=== PATIENT | female | born 1940 | race Caucasian/White ===

== ENCOUNTER 2018-03-18 18:12 | Outpatient (CLI) | payer MEDICARE, BC ==
--- NOTE | 2018-03-18 19:00 | CT Report ---
EXAM: CT HEAD EXAM DATE: 03/18/2018 06:36 PM. CLINICAL HISTORY: HEADACHE ON CHRONIC ANTICOAGULATION. COMPARISON: None. TECHNIQUE: Multiaxial CT images were obtained from the foramen magnum to the vertex. Reformats: Coron al. IV contrast: None. In accordance with CT protocol optimization, one or more of the following dose reduction techniques w ere utilized for this exam: automated exposure control, adjustment of mA and/or KV based on patient s ize, or use of iterative reconstructive technique. FINDINGS: Parenchyma: No intraparenchymal hemorrhage. No evidence of mass, midline shift, or CT findings of inf arction. Estrella-white differentiation is distinct. Extraaxial Spaces: Normal for age. No subdural or epidural collections identified. Ventricles: Normal in size and position. Sinuses and Orbits: There is opacification of the right sphenoid sinus. Other paranasal sinuses appea r clear. Bones: No evidence of fracture or calvarial defect. Other: None. IMPRESSION: 1. Negative for an acute or focal intracranial abnormality. 2. Right sphenoid sinus inflammatory disease. [facility] Referring Provider Line: [phone] SITE ID: [id number]
== END 2018-03-18 18:13 | disposition home or self-care (01) ==
LOC: DI 18:12
PROVIDERS: ATTEND Physician Assistant
DX: R51 Headache (principal); Z79.01 Long term (current) use of anticoagulants; J32.3 Chronic sphenoidal sinusitis
CPT/HCPCS: 70450

== ENCOUNTER 2018-05-15 10:41 | Emergency (ER) | payer MEDICARE, BC ==
[2018-05-15 11:11] LABS: BASOPHILS % (AUTO) 1.2 %; EOSINOPHILS # (AUTO) 0.1 10^3/uL (0.0-0.7); EOSINOPHILS % (AUTO) 4.2 %; LYMPHOCYTES # (AUTO) 1.2 10^3/uL (1.5-3.5); LYMPHOCYTES % (AUTO) 36.9 %; MEAN CORPUSCULAR HEMOGLOBIN 31.6 pg (27.0-31.0); MEAN CORPUSCULAR HGB CONC 33.4 g/dL (32.0-36.0); MEAN CORPUSCULAR VOLUME 94.5 fL (81.0-99.0); MEAN PLATELET VOLUME 7.4 fL (7.9-10.8); MONOCYTES # (AUTO) 0.3 10^3/uL (0.0-1.0); NEUTROPHILS # (AUTO) 1.6 10^3/uL (1.5-6.6); NEUTROPHILS % (AUTO) 47.7 %; PLT - PLATELET COUNT 187 10^3/uL (130-450); RED BLOOD COUNT 4.44 10^6/uL (4.20-5.40); RED CELL DISTRIBUTION WIDTH 14.4 % (12.0-15.0); WHITE BLOOD COUNT 3.4 x10^3/uL (4.8-10.8)
--- NOTE | 2018-05-15 11:18 | XRAY Report ---
Procedure Date: 05/15/2018 Accession Number: [id number] / [id number] Procedure: XR - Chest 2 View X-Ray CPT Code: 38474 FULL RESULT: EXAM: CHEST RADIOGRAPHY EXAM DATE: 05/15/2018 11:09 AM. CLINICAL HISTORY: Shortness of breath, chest pain. COMPARISON: 10/14/2008. TECHNIQUE: 2 views. FINDINGS: Lungs/Pleura: No focal opacities evident. No pleural effusion. No pneumothorax. Normal volumes. Mediastinum: Heart and mediastinal contours are unremarkable. Other: There are mild degenerative disk changes of the midthoracic spine. No acute osseous abnormality. There are postsurgical changes of the right shoulder. IMPRESSION: No acute cardiopulmonary abnormality. [facility]
--- NOTE | 2018-05-15 11:28 | ED Physician Documentation ---
PD HPI CHEST PAIN - Stated complaint Stated Complaint: CHEST PX - Chief complaint Chief Complaint: Cardiac - History obtained from History obtained from: Patient - History of Present Illness Timing - onset: Today Timing - onset during: Rest Timing - details: Now resolved Pain level max: 2 Pain level now: 0 Quality: Dull Location: Substernal Similar symptoms before: Work up / diagnostics (Past history of GA, with stent placement 2017.) - Additional information Additional information: The patient is a 77-year-old female with history of coronary artery disease, who awoke this morning with chest pain, located in the left substernal region. It was a dull pain that she rated at 2 out of 10 in severity. It lasted for about 2 hours before resolving spontaneously. She denies any chest discomfort at this time. She reports exertional dyspnea 2 days ago, but did the same walk yesterday without any exertional dyspnea. She reports "indigestion" intermittently the past couple of days. She denies nausea or vomiting currently. She denies diaphoresis. Past medical history significant for myocardial infarction in December 2017, for which she underwent stent placement of an LAD blockage. She is currently on Eliquis and Plavix. Review of Systems Constitutional: reports: Fatigue (slight). denies: Fever Ears: denies: Tinnitus/ringing Nose: denies: Congestion Throat: denies: Sore throat Cardiac: reports: Chest pain / pressure (Earlier, but not now.) Respiratory: denies: Dyspnea, Cough GI: denies: Abdominal Pain, Nausea, Vomiting : denies: Dysuria Skin: denies: Rash Musculoskeletal: denies: Back pain, Extremity pain Neurologic: denies: Focal weakness, Numbness, Headache PD PAST MEDICAL HISTORY - Past Medical History Cardiovascular: High cholesterol, GA Endocrine/Autoimmune: None - Present Medications Home Medications: Ambulatory Orders Medication Instructions Recorded Confirmed Nitroglycerin [Nitrostat] 0.4 mg SL Q5MIN PRN #25 tablet 05/15/18 - Allergies Allergies/Adverse Reactions: Allergies Allergy/AdvReac Type Severity Reaction Status Date / Time prochlorperazine Allergy Unknown Verified 05/15/18 10:48 [From Compazine] - Social History Does the pt smoke?: No PD ED PE NORMAL - Vitals Vital signs reviewed: Yes (Borderline systolic hypertension) - General General: Alert and oriented X 3, Well developed/nourished - HEENT HEENT: Atraumatic, Moist mucous membranes, Pharynx benign - Neck Neck: No adenopathy, No JVD - Cardiac Cardiac: RRR, No murmur - Respiratory Respiratory: No respiratory distress, Clear bilaterally - Abdomen Abdomen: Soft, Non tender - Back Back: No CVA TTP - Derm Derm: No rash - Extremities Extremities: No edema, No calf tenderness / cord - Neuro Neuro: Alert and oriented X 3, No motor deficit, Normal speech Results - Vitals Vitals: Oxygen O2 Source Room air - EKG (time done) 10:59 Rate: Rate (enter#) (59) Rhythm: NSR Pride: Normal Intervals: Normal IN QRS: Low voltage Computer interpretation: Agree with computer - Labs Labs: Laboratory Tests 05/15/18 05/15/18 05/15/18 11:05 11:05 11:05 WBC 3.4 L RBC 4.44 Hgb 14.0 Hct 42.0 MCV 94.5 MCH 31.6 H MCHC 33.4 RDW 14.4 Plt Count 187 MPV 7.4 L Neut # (Auto) 1.6 Lymph # (Auto) 1.2 L Laurel # (Auto) 0.3 Eos # (Auto) 0.1 Baso # (Auto) 0.0 Absolute Nucleated RBC 0.00 Nucleated RBC % 0.0 Sodium 137 Potassium 3.7 Chloride 102 Carbon Dioxide 27 Anion Gap 8.0 BUN 14 Creatinine 0.8 Estimated GFR (MDRD) 70 L Glucose 127 H Calcium 9.3 Total Bilirubin 0.9 AST 51 H ALT 55 Alkaline Phosphatase 80 Troponin I < 0.04 Total Protein 6.7 Albumin 4.0 Globulin 2.7 Albumin/Globulin Ratio 1.5 Lipase 39 - Rads (name of study) CXR Radiology: Prelim report reviewed, EMP read contemporaneously, See rad report ( No acute cardiopulmonary abnormality.) PD MEDICAL DECISION MAKING - ED course Complexity details: reviewed results, re-evaluated patient, considered differential, d/w patient, d/w family, 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 She has history of coronary artery disease and her symptoms may be a result of angina. However she also has history of gastroesophageal reflux disease, and her symptoms may well be due to GERD. Her electrocardiogram and cardiac enzymes reveal no evidence of acute ischemic abnormality. The patient remained asymptomatic during her entire time in the emergency department. I discussed her condition with her sticker on, who agrees with prescription for sublingual nitroglycerin, and outpatient follow-up in the cardiology clinic. She is being discharged with prescription for sublingual nitroglycerin. I discussed with her and her symptomatic treatment, outpatient follow-up, as well as potentially worrisome signs or symptoms that should prompt reevaluation in the emergency department. - Sepsis Event Vital Signs: Oxygen O2 Source Room air Departure - Departure Disposition: 01 Home, Self Care Clinical Impression: Chest pain Qualifiers: Chest pain type: unspecified Qualified Code(s): R07.9 - Chest pain, unspecified Condition: Stable Instructions: Nitroglycerin Fast Act Dc, ED Chest Pain Atypical Unkn Cause Prescriptions: Nitroglycerin [Nitrostat] 0.4 mg SL Q5MIN PRN #25 tablet PRN Reason: Angina Comments: Continue the medication that has been previously prescribed for you. You can use sublingual nitroglycerin if needed for recurrent chest discomfort or exertional shortness of breath. Follow up with your sticker on next week as planned. Return to the emergency department if you develop increasing chest pain, shortness of breath, or otherwise worsening symptoms. Discharge Date/Time: 05/15/18 13:50
[2018-05-15 11:34] LABS: ALBUMIN/GLOBULIN RATIO 1.5 (1.0-2.2); BILIRUBIN,TOTAL 0.9 mg/dL (0.2-1.0); CALCIUM 9.3 mg/dL (8.5-10.3); CREATININE 0.8 mg/dL (0.4-1.0); TOTAL PROTEIN 6.7 g/dL (6.7-8.2)
[2018-05-15 13:19] VITALS: BP 132/81
== END 2018-05-15 13:50 | disposition home or self-care (01) ==
LOC: ED 10:41
DX: R07.9 Chest pain, unspecified (principal); I25.10 Atherosclerotic heart disease of native coronary artery without angina pectoris
CPT/HCPCS: 36415; 71046; 80053; 83690; 84484; 85025; 93005; 99283; 99284

== ENCOUNTER 2018-12-07 06:34 | Outpatient (CLI) | payer MEDICARE, BC | END 2018-12-07 06:35 | disposition short-term general hospital (02) | LOC: EMS 06:34 | PROVIDERS: ATTEND Surgery | DX: R07.9 Chest pain, unspecified (principal) | CPT/HCPCS: A0425; A0429 ==

== ENCOUNTER 2021-01-29 14:26 | Outpatient (CLI) | payer MEDICARE, BC | END 2021-01-29 14:27 | disposition short-term general hospital (02) | LOC: EMS 14:26 | DX: R07.9 Chest pain, unspecified (principal) | CPT/HCPCS: A0425; A0429 ==

== ENCOUNTER 2021-03-25 15:25 | Outpatient (CLI) | payer MEDICARE, BC | END 2021-03-25 15:26 | disposition home or self-care (01) | LOC: LAB 15:25 | PROVIDERS: ATTEND Internal Medicine | DX: Z20.822 Contact with and (suspected) exposure to COVID-19 (principal) ==

== ENCOUNTER 2021-05-09 08:00 | Outpatient (CLI) | payer MEDICARE, BC ==
[2021-05-09 14:50] LABS: BILIRUBIN,URINE NEGATIVE (NEGATIVE); GLUCOSE, URINE (UA) NEGATIVE (NEGATIVE); KETONES,URINE (UA) NEGATIVE (NEGATIVE); LEUKOCYTE ESTERASE, URINE NEGATIVE (NEGATIVE); NITRITE,URINE NEGATIVE (NEGATIVE); OCCULT BLOOD,URINE NEGATIVE (NEGATIVE); PROTEIN,URINE NEGATIVE (NEGATIVE); UROBILINOGEN,URINE 0.2 (NORMAL) E.U./dL (NORMAL)
[2021-05-09 14:54] LABS: CLARITY,URINE CLEAR (CLEAR)
== END 2021-05-09 23:59 | disposition home or self-care (01) ==
LOC: LAB.R 08:00
PROVIDERS: ATTEND Internal Medicine
DX: I10 Essential (primary) hypertension (principal)
CPT/HCPCS: 81001; 81003

== ENCOUNTER 2021-06-29 08:00 | Outpatient (CLI) | payer MEDICARE, BC | END 2021-06-29 23:59 | disposition home or self-care (01) | LOC: LAB.S 08:00 | PROVIDERS: ATTEND Physician Assistant Medical | DX: B34.9 Viral infection, unspecified (principal); Z20.822 Contact with and (suspected) exposure to COVID-19 ==

== ENCOUNTER 2024-04-07 10:05 | Outpatient (CLI) | payer MEDICARE, OTHER ==
--- NOTE | 2024-04-08 11:49 | Mammography Report ---
BILATERAL DIGITAL SCREENING MAMMOGRAM 3D/2D: 04/07/2024 CLINICAL: Routine screening. Comparison is made to exams dated: 02/26/2023 mammogram, 11/06/2021 mammogram, and 11/06/2020 mammogr am - [facility]. There are scattered areas of fibroglandular density in both breasts (category b / 25%-50% glandular t issue). There is a focal asymmetry in the right breast at 9 o'clock middle depth. There also is a focal asymmetry in the right breast at 12 o'clock posterior depth. No other significant masses, calcifications, or other findings are seen in either breast. IMPRESSION: INCOMPLETE: NEEDS ADDITIONAL IMAGING EVALUATION The focal asymmetry in the right breast at 9 o'clock middle depth is indeterminate. Additional views with possible ultrasound are recommended. The focal asymmetry in the right breast at 12 o'clock posterior depth is indeterminate. Additional v iews with possible ultrasound are recommended. Based on the Tyrer Cuzick model (a risk assessment model) the patient's lifetime risk is 0.6% and her 10 year risk is 0.0%. According to the ACR, ACS, and NCCN guidelines, an annual breast MRI exam denis g with mammogram is recommended if the patient's lifetime risk is 20% or greater. This exam was interpreted at Station ID: [id number]. NOTE: For mammograms, a report in lay terms will be sent to the patient. Approximately 15% of breast malignancies will not be visualized mammographically. In the management of a palpable breast mass, a negative mammogram must not discourage biopsy of a clinically suspicious lesion. Electronically Signed By: Jennifer Gamboa M.D. lk/:04/07/2024 15:49:41 ACR BI-RADS Category 0: Incomplete 3340F PARENCHYMAL PATTERN: (A) - The breast(s) demonstrate(s) scattered fibroglandular densities. BI-RADS CATEGORY: (0) - 0 Mammo and [place] [id number] Immediate follow-up LATERALITY: (B)
== END 2024-04-07 10:06 | disposition home or self-care (01) ==
LOC: DI.S 10:05
DX: Z12.31 Encounter for screening mammogram for malignant neoplasm of breast (principal); R92.8 Other abnormal and inconclusive findings on diagnostic imaging of breast; R92.323 Mammographic fibroglandular density, bilateral breasts

== ENCOUNTER 2024-04-28 09:07 | Outpatient (CLI) | payer MEDICARE, OTHER ==
[2024-04-28 15:05] LABS: BASOPHILS % (AUTO) 0.5 %; EOSINOPHILS # (AUTO) 0.2 10^3/uL (0.0-0.7); EOSINOPHILS % (AUTO) 4.3 %; HCT - HEMATOCRIT 42.6 % (37.0-47.0); HGB - HEMOGLOBIN 13.6 g/dL (12.0-16.0); LYMPHOCYTES # (AUTO) 1.3 10^3/uL (1.5-3.5); LYMPHOCYTES % (AUTO) 34.4 %; MEAN CORPUSCULAR HEMOGLOBIN 30.7 pg (27.0-31.0); MEAN CORPUSCULAR HGB CONC 31.9 g/dL (32.0-36.0); MEAN CORPUSCULAR VOLUME 96.2 fL (81.0-99.0); MEAN PLATELET VOLUME 9.9 fL (7.9-10.8); MONOCYTES # (AUTO) 0.5 10^3/uL (0.0-1.0); NEUTROPHILS # (AUTO) 1.8 10^3/uL (1.5-6.6); NEUTROPHILS % (AUTO) 48.5 %; PLT - PLATELET COUNT 213 10^3/uL (130-450); RED BLOOD COUNT 4.43 10^6/uL (4.20-5.40); RED CELL DISTRIBUTION WIDTH 14.4 % (12.0-15.0); WHITE BLOOD COUNT 3.8 x10^3/uL (4.8-10.8)
== END 2024-04-28 09:08 | disposition home or self-care (01) ==
LOC: LAB.S 09:07
PROVIDERS: ATTEND Internal Medicine
DX: E78.5 Hyperlipidemia, unspecified (principal); I10 Essential (primary) hypertension; R79.89 Other specified abnormal findings of blood chemistry
CPT/HCPCS: 36415; 80053; 80061; 83721; 85025

== ENCOUNTER 2024-04-30 09:46 | Outpatient (CLI) | payer MEDICARE, OTHER ==
[2024-04-30 15:59] LABS: ALBUMIN 4.4 g/dL (3.2-5.5); ALBUMIN/GLOBULIN RATIO 2.1 (1.0-2.2); ALKALINE PHOSPHATASE 51 IU/L (42-121); ALT ALANINE AMINOTRANSFERASE 30 IU/L (10-60); AST ASPARTATE AMINOTRANSFERASE 29 IU/L (10-42); BILIRUBIN,TOTAL 0.7 mg/dL (0.2-1.0); BUN - BLOOD UREA NITROGEN 26 mg/dL (6-20); CALCIUM 9.7 mg/dL (8.5-10.3); CARBON DIOXIDE - CO2 27 mmol/L (21-32); CHLORIDE 106 mmol/L (101-111); CHOLESTEROL 145 mg/dL; CREATININE 0.7 mg/dL (0.6-1.3); GFR - MDRD 80 (>89); GLUCOSE 92 mg/dL (74-104); HDL CHOLESTEROL 74 mg/dL; LDL CHOLESTEROL,CALCULATED 57 mg/dL; LDL/HDL RATIO 0.8 (<4.4); POTASSIUM 4.4 mmol/L (3.5-4.5); SODIUM 138 mmol/L (135-145); TOTAL PROTEIN 6.5 g/dL (6.4-8.9); TRIGLYCERIDES 69 mg/dL (48-352); VLDL CHOLESTEROL 14 mg/dL
== END 2024-04-30 09:47 | disposition home or self-care (01) ==
LOC: LAB.S 09:46
PROVIDERS: ATTEND Internal Medicine
DX: I10 Essential (primary) hypertension (principal); E78.5 Hyperlipidemia, unspecified; R79.89 Other specified abnormal findings of blood chemistry
CPT/HCPCS: 36415; 80053; 80061; 83721

== ENCOUNTER 2024-05-07 09:45 | Outpatient (CLI) | payer MEDICARE, OTHER ==
--- NOTE | 2024-05-10 10:57 | Ultrasound Report ---
LIMITED ULTRASOUND OF RIGHT BREAST AND AXILLA: 05/07/2024 CLINICAL: Patient returns today to evaluate a focal asymmetry in the right breast. Comparison is made to exams dated: 04/07/2024 mammogram - [facility] and 02/26/2023 mammogram - [facility]. Color flow ultrasound of the right breast 7-9 o'clock, 12 o'clock, and axilla regions was performed. Estrella scale images of the real-time examination were reviewed. There is a 0.4 cm x 0.3 cm x 0.4 cm oval mass with mildy angular margins in the right breast at 9 o'c lock middle depth 6 cm from the nipple. This oval mass is hypoechoic with no posterior acoustic shad owing or enhancement. This correlates with mammography findings. Color flow imaging demonstrates th at there is no vascularity present. There also is a 0.7 cm x 0.4 cm x 0.5 cm wider than tall normal lymph node in the right breast at 12 o'clock posterior depth 7 cm from the nipple. This normal lymph node is hypoechoic with fatty hilum. This correlates with mammography findings. Color flow imaging demonstrates that there is no vascul arity present. Additionally, there is a 0.5 cm x 0.3 cm x 0.4 cm wider than tall oval cyst in the right breast at 8 o'clock middle depth 6 cm from the nipple. This oval cyst is anechoic with a well-defined boundary a nd posterior acoustic enhancement. This correlates as an incidental finding. Color flow imaging dem onstrates that there is no vascularity present. No significant abnormalities were seen sonographically in the right axilla. IMPRESSION: SUSPICIOUS OF MALIGNANCY The 0.4 cm x 0.3 cm x 0.4 cm oval mass in the right breast at 9 o'clock middle depth is suspicious of malignancy. An ultrasound guided biopsy is recommended. The 0.7 cm x 0.4 cm x 0.5 cm wider than tall normal lymph node in the right breast at 12 o'clock post erior depth is benign. The 0.5 cm x 0.3 cm x 0.4 cm wider than tall oval cyst in the right breast at 8 o'clock middle depth is consistent with a simple cyst and is benign. Findings and recommendations were discussed with the patient by Dr. Garcia during today's examination. This exam was interpreted at Station ID: [id number]. Electronically Signed By: Mansoor Davis M.D. aty/:05/07/2024 13:14:11 Ultrasound BI-RADS: 4 Suspicious for malignancy BI-RADS CATEGORY: (4) - 4 Biopsy [id number] Immediate follow-up LATERALITY: (R)
--- NOTE | 2024-05-10 10:57 | Mammography Report ---
UNILATERAL RIGHT DIGITAL DIAGNOSTIC MAMMOGRAM 3D/2D WITH LATEROMEDIAL SPOT COMPRESSION: 05/07/2024 CLINICAL: Patient returns today to evaluate focal asymmetries in the right breast. Comparison is made to exams dated: 04/07/2024 mammogram - [facility], 02/26/2023 jennifer mogram, 11/06/2021 mammogram, 11/06/2020 mammogram, 11/02/2019 mammogram, and 10/05/2019 mammogram - [facility]. There are scattered areas of fibroglandular density in the right breast (category b / 25%-50% glandul ar tissue). There is a 0.6 cm oval focal asymmetry in the right breast at 8 o'clock middle depth. This is seen i n additional views. There also is a 0.5 cm oval equal density focal asymmetry in the right breast at 12 o'clock posterior depth. No other significant masses or calcifications are seen in the breast. IMPRESSION: INCOMPLETE: NEEDS ADDITIONAL IMAGING EVALUATION The 0.6 cm oval focal asymmetry in the right breast at 8 o'clock middle depth resembles a cyst or a l ymph node and is indeterminate. An ultrasound is recommended for further evaluation and is scheduled to immediately follow this examination. The 0.5 cm oval equal density focal asymmetry in the right breast at 12 o'clock posterior depth resem bles a cyst or a lymph node and is indeterminate. An ultrasound is recommended for further evaluatio n and is scheduled to immediately follow this examination. Based on the Tyrer Cuzick model (a risk assessment model) the patient's lifetime risk is 0.6% and her 10 year risk is 0.0%. According to the ACR, ACS, and NCCN guidelines, an annual breast MRI exam denis g with mammogram is recommended if the patient's lifetime risk is 20% or greater. This exam was interpreted at Station ID: [id number]. NOTE: For mammograms, a report in lay terms will be sent to the patient. Approximately 15% of breast malignancies will not be visualized mammographically. In the management of a palpable breast mass, a negative mammogram must not discourage biopsy of a clinically suspicious lesion. Electronically Signed By: Mansoor Davis M.D. aty/:05/07/2024 10:31:07 ACR BI-RADS Category 0: Incomplete 3340F PARENCHYMAL PATTERN: (A) - The breast(s) demonstrate(s) scattered fibroglandular densities. BI-RADS CATEGORY: (0) - 0 Ultrasound [id number] Immediate follow-up LATERALITY: (R)
== END 2024-05-07 09:46 | disposition home or self-care (01) ==
LOC: DI 09:45
PROVIDERS: ATTEND Internal Medicine
DX: N63.15 Unspecified lump in the right breast, overlapping quadrants (principal); N60.01 Solitary cyst of right breast; R92.321 Mammographic fibroglandular density, right breast

== ENCOUNTER 2024-05-18 09:44 | Outpatient (CLI) | payer MEDICARE, OTHER ==
[~2024-05-18 09:44] MED LIST: LIDOCAINE 1%-EPI 1:100000 20 ML MDV ONE; LIDOCAINE-MPF 1% 5 ML VIAL ONE
[2024-05-18] MEDS: LIDOCAINE-MPF 1% 5 ML VIAL TD ONE (13:24)
[2024-05-18] MEDS: LIDOCAINE 1%-EPI 1:100000 20 ML MDV SUBQ ONE (13:25)
--- NOTE | 2024-05-20 10:42 | Mammography Report ---
UNILATERAL RIGHT DIGITAL DIAGNOSTIC MAMMOGRAM - RIGHT BREAST POST-PROCEDURE IMAGING FOR MARKER PLACEM ENT: 05/18/2024 CLINICAL: Routine screening. Comparison is made to exams dated: 05/07/2024 ultrasound, 05/07/2024 mammogram, 04/07/2024 mammogram - [facility], 02/26/2023 mammogram, 11/06/2021 mammogram, and 11/06/2020 mammogram - [facility]. There are scattered areas of fibroglandular density in the right breast (category b / 25%-50% glandul ar tissue). There is a marker clip in the appropriate position in the right breast at 9 o'clock middle depth 6 cm from the nipple. This marker clip placement is at the biopsy site. IMPRESSION: POST PROCEDURE MAMMOGRAM FOR MARKER PLACEMENT There was a successful marker clip placement in the right breast middle depth. Based on the Tyrer Cuzick model (a risk assessment model) the patient's lifetime risk is 0.6% and her 10 year risk is 0.0%. According to the ACR, ACS, and NCCN guidelines, an annual breast MRI exam denis g with mammogram is recommended if the patient's lifetime risk is 20% or greater. This exam was interpreted at Station ID: [id number]. NOTE: For mammograms, a report in lay terms will be sent to the patient. Approximately 15% of breast malignancies will not be visualized mammographically. In the management of a palpable breast mass, a negative mammogram must not discourage biopsy of a clinically suspicious lesion. Electronically Signed By: Kel Katz M.D. crm/:05/20/2024 08:27:47 ACR BI-RADS Category Post-procedure mammogram for marker placement PARENCHYMAL PATTERN: (A) - The breast(s) demonstrate(s) scattered fibroglandular densities. BI-RADS CATEGORY: () - Unspecified - other recall n/a LATERALITY: (B)
--- NOTE | 2024-05-20 11:02 | Ultrasound Report ---
ULTRASOUND GUIDED BIOPSY RIGHT BREAST USING VACUUM DEVICE WITH MARKING DEVICE INSERTED: 05/18/2024 CLINICAL: Right breast mass. PATIENT CONSENT: Risks (minor bleeding, infection, vasovagal reaction and repeat procedure), benefits and alternatives were explained to the patient and written informed consent was obtained. Correlation is made to exams dated: 05/07/2024 ultrasound, 05/07/2024 mammogram, 04/07/2024 mammogram - [facility], 02/26/2023 mammogram, 11/06/2021 mammogram, and 11/06/2020 mammogram - [facility]. An ultrasound guided biopsy using real-time ultrasound was performed for the 0.4 cm x 0.3 cm x 0.4 cm mass located in the right breast at 9 o'clock middle depth 6 cm from the nipple. The skin was prepp ed in the usual manner. A biopsy needle was placed adjacent to the abnormality under ultrasound guid ance. Once the needle was documented to be in the correct location, a specimen was obtained using [employer] Mammot[employer] biopsy system. A clip was inserted into the biopsy cavity. The specimen was sent to the laboratory for pathological analysis. IMPRESSION: ULTRASOUND GUIDED BIOPSY BENIGN Ultrasound guided biopsy of the 0.4 cm x 0.3 cm x 0.4 cm mass in the right breast at 9 o'clock middle depth 6 cm from the nipple was successful. Pathology indicates benign "fibrofatty breast tissue with inactive lobules. Focal mild duct epithelia l hyperplasia wihtout atypia. Negative for in situ or invasive carcinoma." Pathology results are conc ordant with imaging findings. A follow-up right diagnsotic mammogram and ultrasound in 6 months is recommended to demonstrate stabi lity. This exam was interpreted at Station ID: [id number]. Kel Baptiste M.D. [facility],ar/:05/20/2024 09:29:10 BI-RADS CATEGORY: () - Mammo and [place] [id number] 6 month follow-up LATERALITY: (R)
== END 2024-05-18 09:45 | disposition home or self-care (01) ==
LOC: DI 09:44
PROVIDERS: ATTEND Internal Medicine
DX: R92.8 Other abnormal and inconclusive findings on diagnostic imaging of breast (principal); N62 Hypertrophy of breast
CPT/HCPCS: 19083